=== PATIENT | male | born 1935 | race Caucasian/White ===

== ENCOUNTER 2017-09-23 08:57 | Day surgery (SDC) | payer OTHER ==
[~2017-09-23] VITALS: Ht 182.9 cm; Wt 110.0 kg
[~2017-09-23 08:57] MED LIST: AMIODARONE HCL200 MG PO; LOPRESSOR25 MG PO; XARELTO20 MG PO
== END 2017-09-23 11:00 | disposition home or self-care (01) ==
LOC: CATH 08:57
PROC: 5A2204Z Restoration of Cardiac Rhythm, Single (ICD-10-PCS; principal; 2017-09-23)
DX: I48.91 Unspecified atrial fibrillation (principal); I50.9 Heart failure, unspecified; I34.0 Nonrheumatic mitral (valve) insufficiency; I44.0 Atrioventricular block, first degree; I44.7 Left bundle-branch block, unspecified; Z79.01 Long term (current) use of anticoagulants
CPT/HCPCS: 93005

== ENCOUNTER 2017-12-08 23:27 | Emergency (ER) | payer OTHER ==
[~2017-12-08] VITALS: Ht 182.9 cm; Wt 109.2 kg
[2017-12-08 23:56] LABS: HEMOGLOBIN 16.1 G/DL (12.5-16.6); MCH 30.6 PG (29.0-34.0); MCHC 34.3 G/DL (30.0-36.0); MCV 89.4 FL (86-99); PLATELET COUNT 360 K/uL (156-360); RBC DIS.WIDTH-CV 14.5 % (11.8-14.6); RBC DIS.WIDTH-SD 47.8 % (39-53); RED BLOOD COUNT 5.26 M/uL (4.00-5.50); WHITE BLOOD COUNT 16.5 K/uL (4.1-10.2)
[2017-12-09 00:06] LABS: APPEARANCE SL.HAZY ((CLEAR)); BILIRUBIN NEGATIVE; BLOOD LARGE; COLOR YELLOW ((YELLOW)); GLUCOSE (STRIP) NEGATIVE; KETONES 5; LEUKOCYTES NEGATIVE; NITRITE NEGATIVE; PROTEIN (STRIP) 30; UROBILINOGEN 0.2 MG/DL (0.2-1.0)
[2017-12-09 00:22] LABS: CHLORIDE 108 MEQ/L (99-109); CREATININE 1.1 MG/DL (0.6-1.3); GFR ESTIMATE (CALCULATED) > 59 mL/min/ (58.99-99999); GLUCOSE 166 mg/dL (70-99); POTASSIUM 4.5 MEQ/L (3.7-5.4); SODIUM 139 MEQ/L (136-147); UREA NITROGEN (BUN) 20 mg/dL (9-23)
[2017-12-09 00:31] LABS: EPITHELIAL CELLS NONE SEEN /HPF; MUCUS NONE SEEN /LPF; RED BLOOD CELLS TNTC /HPF (0-5); WHITE BLOOD CELLS NONE SEEN /HPF (0-5)
[2017-12-09 00:32] LABS: BACTERIA 1+ /HPF; CALCIUM OXALATE CRYSTALS RARE /HPF; UCUL ADDED? YES
[2017-12-09] MEDS ORDERED: ZOFRAN ODT4 MG PO (02:01)
[2017-12-09] MEDS ORDERED: FLOMAX0.4 MG PO (02:01)
[2017-12-09 02:51] VITALS: BP 160/73
== END 2017-12-09 03:03 | disposition home or self-care (01) ==
LOC: EME 23:27
DX: N13.2 Hydronephrosis with renal and ureteral calculous obstruction (principal); K80.20 Calculus of gallbladder without cholecystitis without obstruction; K57.30 Diverticulosis of large intestine without perforation or abscess without bleeding; N28.1 Cyst of kidney, acquired; N40.0 Benign prostatic hyperplasia without lower urinary tract symptoms; K40.20 Bilateral inguinal hernia, without obstruction or gangrene, not specified as recurrent; Z87.442 Personal history of urinary calculi; Z79.01 Long term (current) use of anticoagulants
CPT/HCPCS: 74176; 80048; 81003; 85027; 87086; 99281; 99285; J2405; J3010; J7040; J7050